=== PATIENT | male | born 1990 | race Two or more races ===

== ENCOUNTER 2022-06-19 09:12 | Emergency (ER) | payer OTHER ==
[~2022-06-19] VITALS: Ht 180.3 cm; Wt 102.1 kg
== END 2022-06-19 16:29 | disposition home or self-care (01) ==
LOC: ER 09:12
DX: R07.89 Other chest pain (principal); R10.11 Right upper quadrant pain; Z20.822 Contact with and (suspected) exposure to COVID-19